=== PATIENT | female | born 1950 | race Caucasian/White ===

== ENCOUNTER 2023-05-12 08:14 | Outpatient (CLI) | payer MEDICARE, BC | END 2023-05-12 08:15 | disposition home or self-care (01) | LOC: ULT 08:14 | PROVIDERS: ATTEND Family Medicine | DX: Z13.6 Encounter for screening for cardiovascular disorders (principal); I71.40 Abdominal aortic aneurysm, without rupture, unspecified | CPT/HCPCS: 76775 ==

== ENCOUNTER 2023-07-21 08:56 | Outpatient (CLI) | payer MEDICARE, BC | END 2023-07-21 08:57 | disposition home or self-care (01) | LOC: BICULT 08:56 | PROVIDERS: ATTEND Internal Medicine Nephrology | DX: I12.9 Hypertensive chronic kidney disease with stage 1 through stage 4 chronic kidney disease, or unspecified chronic kidney disease (principal); N18.30 Chronic kidney disease, stage 3 unspecified | CPT/HCPCS: 76770; 93975 ==

== ENCOUNTER 2023-07-29 08:10 | Outpatient (CLI) | payer MEDICARE, BC | END 2023-07-29 08:11 | disposition home or self-care (01) | LOC: RAD 08:10 | PROVIDERS: ATTEND Internal Medicine | DX: R06.00 Dyspnea, unspecified (principal) | CPT/HCPCS: 71046 ==

== ENCOUNTER 2023-08-12 12:58 | Outpatient (CLI) | payer MEDICARE, BC | END 2023-08-12 12:59 | disposition home or self-care (01) | LOC: BICCT 12:58 | PROVIDERS: ATTEND Internal Medicine | DX: J43.9 Emphysema, unspecified (principal); K76.89 Other specified diseases of liver; I71.40 Abdominal aortic aneurysm, without rupture, unspecified; R91.1 Solitary pulmonary nodule | CPT/HCPCS: 71250 ==

== ENCOUNTER 2024-02-04 10:45 | Outpatient (CLI) | payer MEDICARE, BC | END 2024-02-04 10:46 | disposition home or self-care (01) | LOC: RAD 10:45 | PROVIDERS: ATTEND Internal Medicine | DX: R06.00 Dyspnea, unspecified (principal) | CPT/HCPCS: 71046 ==

== ENCOUNTER 2024-08-23 14:40 | Emergency (ER) | payer MEDICARE, BC ==
[~2024-08-23 14:40] MED LIST: Iopamidol-370 76% 500 ML MDV (1 ML CHARGE) ONE
[2024-08-23 15:45] LABS: #Basophils 0.04 10x3/uL (0.0-0.2); %Basophils 0.3 % (0.0-1.0); %Eosinophils 0.3 % (0.0-10.0); %Lymphocytes 15.4 % (21.0-51.0); %Monocytes 7.6 % (0.0-10.0); Hematocrit 48.3 % (36.0-47.0); Hemoglobin 16.1 g/dL (12.0-16.0); Mean Corpuscular HGB CONC 33.3 g/dL (32.0-36.0); Mean Corpuscular Hemoglobin 32.1 pg (27.0-31.0); Mean Corpuscular Volume 96.4 fL (78.0-98.0); Mean Platelet Volume 9.4 fL (7.4-10.4); Platelet Count 262 10x3/uL (130-400); Red Blood Cell (RBC) Count 5.01 mill/uL (4.20-5.40)
[2024-08-23 16:03] LABS: ALT (SGPT) 10 U/L (8-55); AST (SGOT) 16 U/L (5-34); Albumin 3.7 g/dL (3.4-4.8); Alkaline Phosphatase 89 U/L (40-110); Anion Gap 12 mmol/L (10-20); BUN (Urea Nitrogen) 32 mg/dL (9.8-20.1); Bilirubin, Total 0.5 mg/dL (0.2-1.2); Calc. Creatinine Clearance 0 mL/min (70-130); Calcium 9.7 mg/dL (7.8-10.44); Carbon Dioxide 30 mmol/L (23-31); Chloride 99 mmol/L (98-107); Estimated GFR 36; Globulin 3.5 g/dL (2.4-3.5); Glucose 124 mg/dL (83-110); Lipase 36 U/L (8-78); Potassium 3.2 mmol/L (3.5-5.1); Protein, Total 7.2 g/dL (5.8-8.1); Sodium 138 mmol/L (136-145)
[2024-08-23] MEDS ORDERED: Ketorolac Tromethamine 30 MG (1 mL) VIAL ONE (17:13)
[2024-08-23 18:47] LABS: Bacteria/HPF None Seen HPF (None Seen); Bilirubin Negative (Negative); Blood, Urine Negative (Negative); CAUTI Indications for Culture Dysuria,urgency,freq; Clarity Clear (Clear); Glucose, Urine (Dipstick) Normal (Negative); Ketone, Urine Negative (Negative); Leukocyte Negative Leu/uL (Negative); Nitrite Negative (Negative); Protein, Urine (Dipstick) 10 mg/dL (Neg-Trace); RBC/HPF 0-3 HPF (0-3); Squamous Epithelial None Seen HPF (0-3); Urobilinogen Normal mg/dL (Less than 2); WBC/HPF None Seen HPF (0-3)
[2024-08-23 19:00] LABS: Urine Culture Reflex No No
== END 2024-08-23 18:26 | disposition home or self-care (01) ==
LOC: ERS 14:40
DX: A04.72 Enterocolitis due to Clostridium difficile, not specified as recurrent (principal); I10 Essential (primary) hypertension; F17.210 Nicotine dependence, cigarettes, uncomplicated
CPT/HCPCS: 74177; 80053; 81001; 83690; 85025; J1885; 36415; 96374; Q9967

== ENCOUNTER 2024-09-08 12:55 | Inpatient (IN) | payer MEDICARE, BC ==
[2024-09-08 14:03] LABS: #Basophils 0.05 10x3/uL (0.0-0.2); %Basophils 0.5 % (0.0-1.0); %Eosinophils 0.6 % (0.0-10.0); %Lymphocytes 26.8 % (21.0-51.0); %Monocytes 9.1 % (0.0-10.0); %Neutrophils 62.7 % (42.0-75.0); Hematocrit 47.5 % (36.0-47.0); Hemoglobin 16.2 g/dL (12.0-16.0); Mean Corpuscular HGB CONC 34.1 g/dL (32.0-36.0); Mean Corpuscular Hemoglobin 31.5 pg (27.0-31.0); Mean Corpuscular Volume 92.4 fL (78.0-98.0); Mean Platelet Volume 9.3 fL (7.4-10.4); Platelet Count 268 10x3/uL (130-400); RBC Distribution Width 12.3 % (11.5-14.5); Red Blood Cell (RBC) Count 5.14 mill/uL (4.20-5.40)
[2024-09-08 14:22] LABS: ALT (SGPT) 13 U/L (8-55); AST (SGOT) 19 U/L (5-34); Albumin 3.9 g/dL (3.4-4.8); Alkaline Phosphatase 95 U/L (40-110); Anion Gap 16 mmol/L (10-20); BUN (Urea Nitrogen) 29 mg/dL (9.8-20.1); Bilirubin, Total 0.8 mg/dL (0.2-1.2); Calc. Creatinine Clearance 0 mL/min (70-130); Carbon Dioxide 26 mmol/L (23-31); Chloride 97 mmol/L (98-107); Estimated GFR 25; Globulin 3.4 g/dL (2.4-3.5); Glucose 97 mg/dL (83-110); Lipase 49 U/L (8-78); Potassium 3.4 mmol/L (3.5-5.1); Protein, Total 7.3 g/dL (5.8-8.1); Sodium 136 mmol/L (136-145)
[2024-09-08 16:29] LABS: Troponin I 0.035 ng/mL (< 0.028)
[2024-09-08] MEDS ORDERED: Acetaminophen 325 MG TAB PO PRN (17:27)
[2024-09-08] MEDS ORDERED: Acetaminophen 650 MG Suppository PR PRN (17:27)
[2024-09-08] MEDS ORDERED: Senokot S 8.6-50 MG TAB PO PRN (17:27)
[2024-09-08] MEDS ORDERED: Ondansetron PF 4 MG/2 ML Vial IVP PRN (17:29)
[2024-09-08] MEDS ORDERED: Promethazine 25 MG TAB PO PRN (17:29)
[2024-09-08] MEDS ORDERED: Ondansetron ODT 4 MG TAB PO PRN (17:29)
[2024-09-08] MEDS ORDERED: Morphine 2 MG/ML VIAL SLOW IVP PRN (17:37)
[2024-09-08] MEDS ORDERED: Aspirin Chewable 81 MG TAB ONE (17:43)
[2024-09-08] MEDS ORDERED: Electrolyte Replacement Protocol 1 EACH FS SCH (17:45)
[2024-09-08 17:47] LABS: Magnesium 2.3 mg/dL (1.6-2.6)
[2024-09-08] MEDS ORDERED: Potassium Chloride 20 MEQ TAB ONE (18:42)
[2024-09-08 19:07] LABS: Troponin I 0.037 ng/mL (< 0.028)
[2024-09-08 20:25] VITALS: BMI 26.2
[2024-09-08] MEDS: Lidocaine 2% Viscous Solution 10 ML, Aluminum & Magnesium Hydroxide 30 ML SSW SCH (21:08)
[2024-09-08] MEDS: Pantoprazole 40 MG VIAL IVP SCH (21:09)
[2024-09-08] MEDS: Lactated Ringer's 1,000 ML IV SCH (21:11)
[2024-09-08 22:51] LABS: Troponin I 0.034 ng/mL (< 0.028)
[2024-09-09 03:59] LABS: #Basophils 0.05 10x3/uL (0.0-0.2); %Basophils 0.7 % (0.0-1.0); %Eosinophils 1.3 % (0.0-10.0); %Lymphocytes 40.3 % (21.0-51.0); %Monocytes 11.2 % (0.0-10.0); %Neutrophils 46.4 % (42.0-75.0); Hematocrit 40.1 % (36.0-47.0); Hemoglobin 13.7 g/dL (12.0-16.0); Mean Corpuscular HGB CONC 34.2 g/dL (32.0-36.0); Mean Corpuscular Hemoglobin 31.7 pg (27.0-31.0); Mean Corpuscular Volume 92.8 fL (78.0-98.0); Mean Platelet Volume 9.5 fL (7.4-10.4); Platelet Count 221 10x3/uL (130-400); RBC Distribution Width 12.2 % (11.5-14.5); Red Blood Cell (RBC) Count 4.32 mill/uL (4.20-5.40)
[2024-09-09 04:14] LABS: Anion Gap 11 mmol/L (10-20); BUN (Urea Nitrogen) 26 mg/dL (9.8-20.1); Calc. Creatinine Clearance 32 mL/min (70-130); Calcium 8.7 mg/dL (7.8-10.44); Carbon Dioxide 28 mmol/L (23-31); Chloride 104 mmol/L (98-107); Estimated GFR 35; Glucose 103 mg/dL (83-110); Potassium 3.7 mmol/L (3.5-5.1); Sodium 139 mmol/L (136-145)
[2024-09-09 09:08] VITALS: BMI 26.2
[2024-09-09] MEDS: Saccharomyces boulardii 250 MG CAP PO SCH (09:40)
[2024-09-09] MEDS: Nicotine 21 MG PATCH TD SCH (12:51)
[2024-09-09] MEDS: Fidaxomicin 200 MG TAB PO SCH ×2 (15:40→21:02)
[2024-09-10] MEDS ORDERED: Lidocaine 1% PF 5 ML VIAL ONE (08:56)
[2024-09-10] MEDS ORDERED: PROPOFOL 20 ML ONE (08:56)
[2024-09-10] MEDS: Sertraline 25 MG TAB PO SCH (10:03)
[2024-09-10] MEDS: Rosuvastatin 20 MG TAB PO SCH (10:04)
[2024-09-10] MEDS: clonazePAM 0.5 MG TAB PO SCH (10:04)
[2024-09-10] MEDS: Nicotine 21 MG PATCH TD SCH (10:12)
[2024-09-10 12:09] LABS: Anion Gap 17 mmol/L (10-20); BUN (Urea Nitrogen) 19 mg/dL (9.8-20.1); Calc. Creatinine Clearance 43 mL/min (70-130); Calcium 9.4 mg/dL (7.8-10.44); Carbon Dioxide 17 mmol/L (23-31); Chloride 108 mmol/L (98-107); Estimated GFR 49; Glucose 90 mg/dL (83-110); Potassium 4.3 mmol/L (3.5-5.1); Sodium 138 mmol/L (136-145)
[2024-09-10 12:23] VITALS: BP 167/76; TEMP 98
[2024-09-10 12:46] LABS: #Basophils 0.05 10x3/uL (0.0-0.2); %Basophils 0.9 % (0.0-1.0); %Eosinophils 1.1 % (0.0-10.0); %Lymphocytes 31.3 % (21.0-51.0); %Monocytes 8.6 % (0.0-10.0); %Neutrophils 57.9 % (42.0-75.0); Hematocrit 50.3 % (36.0-47.0); Hemoglobin 15.6 g/dL (12.0-16.0); Mean Corpuscular Volume 103.3 fL (78.0-98.0); Mean Platelet Volume 9.4 fL (7.4-10.4); Platelet Count 190 10x3/uL (130-400); RBC Distribution Width 12.4 % (11.5-14.5); Red Blood Cell (RBC) Count 4.87 mill/uL (4.20-5.40)
[2024-09-11] MEDS ORDERED: FLU (Fluad Triv) TS24-25 (65UP)/MF59C/PF 45 MCG/0.5 ML Syringe IM ONE (21:00)
== END 2024-09-10 15:40 | disposition home or self-care (01) | DRG 371 ==
LOC: ERS 12:55 → 2SW 17:55 → OBSVTOIN 09-09 17:46
PROVIDERS: ADMIT Student in an Organized Health Care Education/Training Program; ATTEND Student in an Organized Health Care Education/Training Program
PROC: 0DB68ZX Excision of Stomach, Via Natural or Artificial Opening Endoscopic, Diagnostic (ICD-10-PCS; principal; 2024-09-10)
DX: A04.72 Enterocolitis due to Clostridium difficile, not specified as recurrent (principal); I21.A1 Myocardial infarction type 2; N17.9 Acute kidney failure, unspecified; I10 Essential (primary) hypertension; E78.5 Hyperlipidemia, unspecified; F41.9 Anxiety disorder, unspecified; F32.A Depression, unspecified; I71.40 Abdominal aortic aneurysm, without rupture, unspecified; K29.70 Gastritis, unspecified, without bleeding; E87.6 Hypokalemia; E86.0 Dehydration; Z90.89 Acquired absence of other organs; Z98.890 Other specified postprocedural states
CPT/HCPCS: 36415; 74176; 76705; 80048; 80053; 82274; 83605; 83690; 83735; 84484; 85025; 88305; 93005; 96374; 96376; G0378; J2470; J2704